=== PATIENT | male | born 1985 | race Caucasian/White ===

== ENCOUNTER → 2021-08-14 09:55 | Outpatient (BNVA) | payer MEDICARE, SELFPAY | PROVIDERS: Visit Provider Emergency Medicine | DX: M25.512 Pain in left shoulder (principal) | CPT/HCPCS: 73030 ==

== ENCOUNTER 2021-11-05 06:00 | Outpatient (RCR) | payer MEDICARE, SELFPAY | END 2021-12-05 23:59 | disposition home or self-care (01) | LOC: MPT 06:00 | PROVIDERS: PCP Family Medicine; Referring Provider Family Medicine; Visit Provider Family Medicine | DX: M54.2 Cervicalgia (principal); G89.29 Other chronic pain | CPT/HCPCS: 97110; 97162 ==

== ENCOUNTER → 2021-11-13 10:09 | Outpatient (BNVA) | payer MEDICARE, SELFPAY | PROVIDERS: PCP Family Medicine; Visit Provider Family Medicine | DX: I10 Essential (primary) hypertension (principal); G89.29 Other chronic pain; M54.2 Cervicalgia; Z13.220 Encounter for screening for lipoid disorders; Z13.6 Encounter for screening for cardiovascular disorders; E11.9 Type 2 diabetes mellitus without complications | CPT/HCPCS: 72040; 80053; 80061; 83036 ==

== ENCOUNTER 2021-12-06 06:00 | Outpatient (RCR) | payer MEDICARE, SELFPAY | END 2022-01-01 17:39 | disposition home or self-care (01) | LOC: MPT 06:00 | PROVIDERS: PCP Family Medicine; Referring Provider Family Medicine; Visit Provider Family Medicine | DX: G89.29 Other chronic pain (principal); M54.2 Cervicalgia | CPT/HCPCS: 97110; G0283 ==

== ENCOUNTER → 2022-08-07 13:33 | Outpatient (BNVA) | payer MEDICARE, OTHER, SELFPAY | PROVIDERS: PCP Family Medicine; Visit Provider Emergency Medicine | DX: R68.89 Other general symptoms and signs (principal); I10 Essential (primary) hypertension; M54.9 Dorsalgia, unspecified; G89.29 Other chronic pain; K21.9 Gastro-esophageal reflux disease without esophagitis; J98.8 Other specified respiratory disorders; B97.89 Other viral agents as the cause of diseases classified elsewhere; Z76.0 Encounter for issue of repeat prescription | CPT/HCPCS: 87400 ==

== ENCOUNTER → 2022-10-09 09:33 | Outpatient (BNVA) | payer MEDICARE, OTHER, SELFPAY | PROVIDERS: PCP Family Medicine; Visit Provider Family Medicine | DX: E78.5 Hyperlipidemia, unspecified (principal); E11.9 Type 2 diabetes mellitus without complications; I10 Essential (primary) hypertension; E34.9 Endocrine disorder, unspecified; K21.9 Gastro-esophageal reflux disease without esophagitis; R79.89 Other specified abnormal findings of blood chemistry; I16.0 Hypertensive urgency; Z91.199 Patient's noncompliance with other medical treatment and regimen due to unspecified reason | CPT/HCPCS: 80053; 80061; 83036; 83880; 84402; 84403 ==

== ENCOUNTER → 2022-10-30 09:33 | Outpatient (BNVA) | payer MEDICARE, OTHER, SELFPAY | PROVIDERS: PCP Family Medicine; Visit Provider Family Medicine | DX: E34.9 Endocrine disorder, unspecified (principal); R79.89 Other specified abnormal findings of blood chemistry | CPT/HCPCS: 84402; 84403 ==

== ENCOUNTER → 2022-11-25 08:54 | Outpatient (BNVA) | payer MEDICARE, OTHER, SELFPAY | PROVIDERS: PCP Family Medicine; Visit Provider Family Medicine | DX: E34.9 Endocrine disorder, unspecified (principal) | CPT/HCPCS: 84402; 84403 ==

== ENCOUNTER 2023-01-20 22:45 | Inpatient (IN) | payer MEDICARE, OTHER, SELFPAY ==
[2023-01-20 22:52] VITALS: BP 165/106; PULSE 75; RESP 18; TEMP 37.1; O2SAT 96
--- NOTE | 2023-01-20 23:22 | ECG_ITS ---
[facility] Test Date: 2023-01-20 Pat Name: Anselmo Velasco Department: Room: Gender: Male Partner Marketing Manager: : 1985 Requested By: Saul Carrillo Order Number: [id number] Ericka MD: Kareem Paige M.D. Measurements Intervals [place] Rate: 75 P: 14 UT: 176 QRS: -1 QRSD: 106 T: 8 QT: 395 QTc: 444 Interpretive Statements SINUS RHYTHM MODERATE VOLTAGE CRITERIA FOR LVH, CONSIDER NORMAL VARIANT [MEETS CRITERIA IN ONE OF: R(aVL), S(V1), R(V5), R(V5/V6)+S(V1)] POSSIBLE ANTERIOR MYOCARDIAL INFARCTION , PROBABLY OLD [30 ms Q WAVE IN V3/V4, OR R < 0.2 mV IN V4] No previous ECG available for comparison Electronically Signed On 01-21-2023 17:49:35 CDT by Kareem Paige M.D. [email or web address] general [email or web address]/store/OM/[id number]
--- NOTE | 2023-01-20 23:22 | XRR_ITS ---
PROCEDURE INFORMATION: Exam: XR Chest Exam date and time: 01/20/2023 11:39 PM Age: 37 years old Clinical indication: Chest pressure; Patient HX: C/O chest pain TECHNIQUE: Imaging protocol: Radiologic exam of the chest. Views: 1 view. COMPARISON: CR XR cervical spine 3V* [id number] 11/13/2021 10:26 AM FINDINGS: Lungs: There is mildly increased lung markings, likely secondary to low lung volumes. Minimal bibasilar atelectasis seen. No consolidation. Pleural spaces: Unremarkable. No pleural effusion. No pneumothorax. Heart/Mediastinum: Unremarkable. No cardiomegaly. Bones/joints: Unremarkable. XR/XR chest 1V portable [id number] IMPRESSION: No clear evidence of active cardiopulmonary disease.
--- NOTE | 2023-01-20 23:25 | ED.C_ITS ---
HPI - Psych General: Chief Complaint: Psychiatric Symptoms Stated Complaint: Si Time Seen by Provider: 01/20/23 23:02 History of Present Illness: 37-year-old male patient comes in today with complaints of anxiety and suicidal thoughts. Patient reports that he has suicidal thoughts every day but today they were worse and I am in a dark place. Patient has a history of PTSD from serving in the with discharge in 2013. Patient's medical condition also includes TBI, hypertension, hypercholesteremia, GERD, gout, diabetes mellitus controlled with diet last A1c 5.7, cardiomegaly, and hearing loss. Patient has a history of alcoholism and current marijuana use. Prior surgeries include right shoulder repair, rotator cuff repair on the right, bunion removal, wisdom teeth. [facility]. Patient admits to use of alcohol due to can help with depression but seem to have made it worse. Patient appears nontoxic. Patient is very animated in his speech. Patient also reported some chest discomfort with this episode today. Associated symptoms: Reports suicidal ideation Review of Systems General: Reports: 10 or more systems reviewed and unremarkable except in HPI and below Const: Denies: fever(s) or chills Eyes: Denies: change in vision ENMT: Denies: throat pain Card: Reports: chest pain Resp: Denies: dyspnea GI: Denies: nausea, vomiting, diarrhea or constipation : Denies: flank pain Musc: Denies: neck pain or back pain Skin/Breast: Denies: rash Neuro: Denies: headache(s) Psych: Reports: anxiety and suicidal ideation [facility] ED PFSH: Medical History History of lipoma Hx of acute renal failure 2018 Surgical History History of arthroscopy of right shoulder had to go back into to remove adhesions and bone spurs History of bunionectomy of both great toes History of dental surgery History of vasectomy Family History Father Clotting disorder Diabetes Hyperlipidemia Hypertension Grandmother Diabetes paternal Hypertension Grandfather Diabetes Hypertension Mother Hypertension Denies family history of Bleeding disorder Stroke Social History Smoking and tobacco status: former smoker Physical Exam Const: COMMON NORMALS: alert GENERAL APPEARANCE: well kempt HENMT: COMMON NORMALS: normocephalic HEAD & SCALP: normocephalic Neck/C-Spine: COMMON NORMALS: full ROM Resp: COMMON NORMALS: normal respiratory effort and clear to auscultation bilaterally AUSCULTATION: clear to auscultation bilaterally Cardio: COMMON NORMALS: regular rate and regular rhythm RATE: regular rate RHYTHM: regular rhythm GI: COMMON NORMALS: non-tender Extremity: COMMON NORMALS: normal to inspection Neuro: SENSORIUM/ORIENTATION: Yes alert Psych: APPEARANCE: Yes well kempt ATTITUDE: Yes bizarre ACTIVITY/MOTOR BEHAVIOR: Yes appropriate eye contact and Yes hyperactivity SPEECH: Yes excessive MOOD & AFFECT: Yes anxious THOUGHT PROCESS: Circumstantial thought process present THOUGHT CONTENT: Yes Suicidality present MEMORY/COGNITION: Yes memory grossly intact INSIGHT: Fair insight present (Psych) JUDGEMENT: Fair judgement present (Psych) Course ED course: 257, consulted Dr. Scott who agreed to admission to neuropsychiatric unit for SI. Vital Signs: Vital signs: Vital Signs Temperature 98 F 01/21/23 14:00 Pulse Rate 82 01/21/23 14:00 Respiratory Rate 18 01/21/23 14:00 Blood Pressure 133/95 01/21/23 14:00 Pulse Oximetry 95 01/21/23 14:00 Oxygen Delivery Me thod Room Air 01/21/23 05:48 [facility] - Psych Medical Decision Making 37-year-old male patient was brought in by EMS for concerns of chest pain, panic attack, and suicidal ideation. Patient reports that he has been anxious for the last 3 days. Patient reports having chest discomfort today and calling EMS to bring him to the emergency room. In route to the ER patient confided with EMS that he felt suicidal and did not want to go along with life. Patient has a history of PTSD after discharge from the in 2013. Patient reports being in a dark place today and having more intrusive suicidal thoughts. Patient did not feel safe at home and wants admission to the stress unit. Patient is cooperative during exam. Respirations are even lungs are clear to auscultation. Vital signs are normal except for some elevation in blood pressure. Differential diagnosis includes but not limited to suicidal ideation, anxiety attack, major depressive disorder. EKG showed a sinus rhythm with a regular rate at 75 bpm. CBC did have some mild leukocytosis 18,000, CMP was unremarkable, salicylate, acetaminophen, ethyl alcohol were negative. First and 2-hour troponins were normal. Patient was cleared of any medical problems. Patient was discussed with Dr. Luna who recommended admission to neuropsychiatr ic unit. Dr. Scott was consulted for admission and agreed to plan. Lab Data 01/20/23 23:35 01/20/23 23:35 Radiology Impressions Chest X-Ray 01/20/23 23:22 IMPRESSION: No clear evidence of active cardiopulmonary disease. Laboratory Results WBC 18.3 10^3/uL (4.0-10.0) H 01/20/23 23:35 RBC 5.71 10^6/uL (4.1-5.3) H 01/20/23 23:35 Hgb 15.6 g/dL (11.7-16.6) 01/20/23 23:35 Hct 47.3 % (42.0-52.0) 01/20/23 23:35 MCV 82.8 fl (80-94) 01/20/23 23: MCH 27.3 pg (28.0-34.0) L 01/20/23 23:35 MCHC 33.0 g/dL (30.0-36.0) 01/20/23 23:35 RDW 11.9 % (12.1-15.1) L 01/20/23 23:35 Plt Count 312 10^3/cmm (130-400) 01/20/23 23:35 MPV 9.2 fL (7.4-10.4) 01/20/23 23:35 Neut % (Auto) 83.4 % 01/20/23 23:35 Lymph % (Auto) 9.0 % 01/20/23 23:35 [place] % (Auto) 5.5 % 01/20/23 23:35 Eos % (Auto) 1.4 % 01/20/23 23:35 Baso % (Auto) 0.3 % 01/20/23 23:35 Neut # (Auto) 15.28 10^3/uL (1.8-7.7) H 01/20/23 23:35 Lymph # (Auto) 1.7 10^3/uL (0.8-4.8) 01/20/23 23:35 [place] # (Auto) 1.0 10^3/uL (0.2-0.9) H 01/20/23 23:35 Eos # (Auto) 0.3 10^3/uL (0.0-0.8) 01/20/23 23:35 Baso # (Auto) 0.1 10^3/uL (0.0-0.1) 01/20/23 23:35 Nucleated RBC % (auto) 0 % 01/20/23 23:35 Nucleated RBCs # 0.0 /100WBC 01/20/23 23:35 Sodium 138 mmol/L (136-145) 01/20/23 23:35 Potassium 3.5 mmol/L (3.5-5.1) 01/20/23 23:35 Chloride 100 mmol/L (98-107) 01/20/23 23:35 Carbon Dioxide 22 mmol/L (22-29) 01/20/23 23:35 Anion Gap 19.5 (5-19) H 01/20/23 23:35 BUN 11 mg/dL (6-20) 01/20/23 23:35 Creatinine 0.9 mg/dL (0.7-1.2) 01/20/23 23:35 GFR Calculation 93.9 mL/min (90-130) 01/20/23 23:35 Glucose 95 mg/dL (65-115) 01/20/23 23:35 Calculated Osmolality 285 mOsm/kg (285-295) 01/20/23 23:35 Calcium 9.7 mg/dL (8.5-10.5) 01/20/23 23:35 Total Bilirubin 0.7 mg/dL (0.15-1.2) 01/20/23 23:35 AST 33 U/L (0-40) 01/20/23 23:35 ALT 48 U/L (0-41) H 01/20/23 23:35 Alkaline Phosphatase 121 U/L (40-130) 01/20/23 23:35 Troponin T Baseline 9 ng/L (0-15) 01/20/23 23:35 Troponin T 120 Minute 12.04 ng/L (0-15) 01/21/23 02:16 Delta Troponin T 3.04 ABS# (0-10) 01/21/23 02:16 Total Protein 6.7 g/dL (6.6-8.7) 01/20/23 23:35 Albumin 4.8 g/dL (3.5-5.2) 01/20/23 23:35 Globulin 1.9 g/dL (1.3-4.6) 01/20/23 23:35 Salicylates < 0.3 mg/dL (3-10) L 01/20/23 23:35 Acetaminophen < 5.0 ug/mL (10-30) L 01/20/23 23:35 Ethyl Alcohol < 10 mg/dL (0-10) 01/20/23 23:35 Discharge Plan Discharge Patient Disposition: Admitted As Inpatient Admit Provider: James Scott Clinical Impression: Suicidal ideation, Post traumatic stress disorder (PTSD), Anxiety disorder Condition: Stable Coding Level of Care Code ED County Engineer for Keke Kaur
[2023-01-20] MEDS: pantoprazole 40 mg SDV IVP (23:32)
[2023-01-20] MEDS: LORazepam 2 mg/mL INJ 1 mL IVP (23:32)
[2023-01-20 23:52] LABS: Basophils # 0.1 10^3/uL (0.0-0.1); Basophils % 0.3 %; Eosinophils # 0.3 10^3/uL (0.0-0.8); Eosinophils % 1.4 %; Hematocrit 47.3 % (42.0-52.0); Hemoglobin 15.6 g/dL (11.7-16.6); Lymphocytes # 1.7 10^3/uL (0.8-4.8); Mean Corpuscular Hemoglobin 27.3 pg (28.0-34.0); Mean Corpuscular Volume 82.8 fl (80-94); Mean Platelet Volume 9.2 fL (7.4-10.4); Monocytes % 5.5 %; Neutrophils # 15.28 10^3/uL (1.8-7.7); Neutrophils % 83.4 %; Nucleated Red Blood Cells % 0 %; Platelet Count 312 10^3/cmm (130-400); Red Blood Count 5.71 10^6/uL (4.1-5.3); Red Cell Distribution Width 11.9 % (12.1-15.1); White Blood Count 18.3 10^3/uL (4.0-10.0)
[2023-01-21] LABS: Troponin(5th) Baseline 9 ng/L (0-15)
[2023-01-21 00:07] LABS: Acetaminophen < 5.0 ug/mL (10-30); Alanine Aminotransferase 48 U/L (0-41); Albumin Level 4.8 g/dL (3.5-5.2); Alcohol Level < 10 mg/dL (0-10); Alkaline Phosphatase 121 U/L (40-130); Anion Gap 19.5 (5-19); Aspartate Amino Transferase 33 U/L (0-40); Blood Urea Nitrogen 11 mg/dL (6-20); Calcium 9.7 mg/dL (8.5-10.5); Carbon Dioxide 22 mmol/L (22-29); Chloride 100 mmol/L (98-107); Globulin 1.9 g/dL (1.3-4.6); Glomerular Filtration Rate 93.9 mL/min (90-130); Glucose 95 mg/dL (65-115); Osmolality Calculated 285 mOsm/kg (285-295); Potassium 3.5 mmol/L (3.5-5.1); Salicylate < 0.3 mg/dL (3-10); Sodium 138 mmol/L (136-145); Total Bilirubin 0.7 mg/dL (0.15-1.2); Total Protein 6.7 g/dL (6.6-8.7)
--- NOTE | 2023-01-21 01:22 | ECG_ITS ---
[facility] Test Date: 2023-01-21 Pat Name: Anselmo Velasco Department: Room: 151 Gender: Male Internet Database Specialist: : 1985 Requested By: Saul Carrillo Order Number: [id number] Ericka MD: Kareem Paige M.D. Measurements Intervals [place] Rate: 63 P: 37 TX: 173 QRS: 30 QRSD: 107 T: 36 QT: 405 QTc: 416 Interpretive Statements SINUS RHYTHM Compared to ECG 01/20/2023 23:57:53 Myocardial infarct finding no longer present Electronically Signed On 01-21-2023 18:00:01 CDT by Kareem Paige M.D. [email or web address] Solarallegiance specialty hospital of greenvilleEmpathicamercy health fairfield hospitalOilex/store/OM/[id number]
[2023-01-21 02:40] LABS: Troponin 5 2HR 12.04 ng/L (0-15)
[2023-01-21 03:00] LABS: Troponin 5 2HR Delta 3.04 ABS# (0-10)
[2023-01-21 04:02] VITALS: BP 135/84; PULSE 72; RESP 16; O2SAT 97
--- NOTE | 2023-01-21 05:22 | ECG_ITS ---
[facility] Test Date: 2023-01-21 Pat Name: Anselmo Velasco Department: Room: 150 Gender: Male Manager Drive: : 1985 Requested By: Saul Carrillo Order Number: [id number] Ericka MD: Kareem Paige M.D. Measurements Intervals [place] Rate: 66 P: 27 MT: 174 QRS: 31 QRSD: 108 T: 23 QT: 400 QTc: 422 Interpretive Statements SINUS RHYTHM Compared to ECG 01/21/2023 03:51:44 No significant changes Electronically Signed On 01-21-2023 17:59:34 CDT by Kareem Paige M.D. [email or web address] rehabilitation centerMicroSolarpremier health miami valley hospital northPodio/store/OM/[id number]
[2023-01-21 05:48] VITALS: BP 146/93; PULSE 72; RESP 16; TEMP 36.6; O2SAT 97
[2023-01-21 14:00] VITALS: BP 133/95; PULSE 82; RESP 18; TEMP 36.6; O2SAT 95
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
[2023-01-21] MEDS: quetiapine 25 mg Tablet 50 MG PO (21:02)
[2023-01-21 22:00] VITALS: BP 154/89; PULSE 96; RESP 18; TEMP 37; O2SAT 93
[2023-01-22 05:56] VITALS: RESP 15
[2023-01-22] MEDS: atorvastatin 40 mg Tablet 20 MG PO (11:59)
[2023-01-22] MEDS: lisinopril 20 mg Tablet 40 MG PO (11:59)
[2023-01-22] MEDS: pantoprazole DR 40 mg Tablet PO (11:59)
[2023-01-22 12:20] LABS: Amphetamines Screen Urine Negative (Negative); Barbiturates Screen Urine Negative (Negative); Benzodiazepines Screen Urine Positive (Negative); Cocaine Screen Urine Negative (Negative); Opiate Screen Urine Negative (Negative); PCP Screen Urine Negative (Negative); THC Screen Urine Positive (Negative)
[2023-01-22 14:00] VITALS: BP 129/89; PULSE 78; RESP 20; TEMP 37.1; O2SAT 96
--- NOTE | 2023-01-22 15:36 | P.NPUPN_ITS ---
Subjective NPU Subjective: Patient presented today quite upset about the fact that he was not allowed to leave the moment that he decided he wanted to leave because I am involuntary. We discussed the fact that his comments yesterday about feeling suicidal have impacts today and that this proposal lead writer does not know him and would like to make sure that he is going to be safe and there is a clear plan for discharge. After a fairly agitated interaction we spoke again later and he was able to be more calm. No less frustrated about having to stay but able to manage himself. He reports [facility] and he will be following up there. We agreed that we would make sure the social work team was able to identify those appointments and that we get collateral information from his about guns and issues of safety and that we would consider discharge tomorrow if he was still wanting to leave. He was clear that he does not want to try medications reporting that medical marijuana has been a godsend but being unable to explain why that was not the case 2 days ago. Mental Status Exam MSE Comments: This is an obese white male in hospital scrubs with appropriate grooming and eye contact.? No abnormal movements except for mild psychomotor agitation.? Cooperative with exam in mild distress.? Speech was increased rate and volume.? Mood described as frustrated about being here, affect congruent.? Thought process organized.? Thought content: Patient denied suicidal or homicidal ideation, there were no delusions reported or noted, he denied any auditory or visual hallucinations.? Attention and concentration were intact and memory appeared reliable but none were formally tested.? He is alert and oriented x3.? Insight and judgment appear fair and impulse control appears limited. Vitals/I&O/Wt Last Vital Signs Temp 98.6 F 01/21/23 22:00 Pulse 96 01/21/23 22:00 Resp 15 01/22/23 05:56 BP 154/89 01/21/23 22:00 Pulse Ox 93 01/21/23 22:00 O2 Del Method Room Air 01/21/23 22:00 Weight last 48 hrs Weight 136.35 kg Data NPU 01/20/23 23:35 01/20/23 23:35 A&P Assessment and plan (1) Major depressive disorder: (2) Post traumatic stress disorder (PTSD): (3) Suicidal ideation: (4) Traumatic brain injury: (5) Sleep apnea: Qualifiers: Sleep apnea type: obstructive Qualified Code(s): G47.33 - Obstructive sleep apnea (adult) (pediatric) Plan The patient is a 37-year-old white male with a history of PTSD and depression admitted with recent reemergence of depressed mood with suicidal thoughts with unknown triggers reported. Patient would likely benefit from inpatient hospitalization for acute stabilization. 1.? ?Encourage individual ,milieu, and group therapy ?2. ? We will attempt to gather collateral information from previous providers ?3. ? TO-15 minute checks on the unit. ?4.? Recommend sober living treatment at the highest level of care to which the patient is willing to commit. 5. Patient voluntary and not interested in medications. May consider discharge tomorrow. Involuntary Hold Information 2 96 Hour Hold: 96 Hour Involuntary Admission: No Attestations NPU Medical Necessity Statement*: Inpatient hospitalization is medically necessary and the clinically appropriate intervention at this time. We will monitor medications and make changes as indicated. Likely length of stay is 1-3 days. Coding Level of Care Code Acute Code for [facility] Fwd Diagnoses Major depressive disorder F32.9 Post traumatic stress disorder (PTSD) F43.10 Suicidal ideation R45.851 Traumatic brain injury S06.9X9A Sleep apnea G47.33 Sleep apnea type: obstructive
[2023-01-22 22:00] VITALS: RESP 16
[2023-01-23 06:00] VITALS: RESP 14
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
[2023-01-23 08:05] VITALS: RESP 14
[2023-01-23] MEDS: lisinopril 20 mg Tablet 40 MG PO (08:35)
[2023-01-23] MEDS: atorvastatin 40 mg Tablet 20 MG PO (08:35)
[2023-01-23] MEDS: pantoprazole DR 40 mg Tablet PO (08:35)
--- NOTE | 2023-01-23 08:48 | DCPLANNER ---
IMM was printed and given to pt and rights explained. Copy placed in pts file.
== END 2023-01-23 10:30 | disposition home or self-care (01) | DRG 881 ==
LOC: ER 01-21 03:00 → NP 01-21 03:31
PROVIDERS: Emergency Medicine; Admitting Provider Psychiatry & Neurology Psychiatry; Emergency Provider Nurse Practitioner Family; PCP Family Medicine; Visit Provider Psychiatry & Neurology Psychiatry
DX: F32.9 Major depressive disorder, single episode, unspecified (principal); R45.851 Suicidal ideations; Z81.3 Family history of other psychoactive substance abuse and dependence; Z87.820 Personal history of traumatic brain injury; Z88.0 Allergy status to penicillin; E78.00 Pure hypercholesterolemia, unspecified; K21.9 Gastro-esophageal reflux disease without esophagitis; M10.9 Gout, unspecified; E11.9 Type 2 diabetes mellitus without complications; H91.90 Unspecified hearing loss, unspecified ear; F10.20 Alcohol dependence, uncomplicated; F12.90 Cannabis use, unspecified, uncomplicated; Z87.891 Personal history of nicotine dependence; F43.10 Post-traumatic stress disorder, unspecified; F41.9 Anxiety disorder, unspecified; G47.33 Obstructive sleep apnea (adult) (pediatric)
CPT/HCPCS: 71045; 80053; 80306; 80307; 84484; 85025; 93005; 96374; 96375; 97165; 99238; 99285; C9113; J2060

== ENCOUNTER → 2023-04-15 13:09 | Outpatient (BNVA) | payer MEDICARE, OTHER, SELFPAY | PROVIDERS: PCP Family Medicine; Visit Provider Emergency Medicine | DX: M25.532 Pain in left wrist (principal) | CPT/HCPCS: 73110 ==

== ENCOUNTER → 2023-07-01 15:08 | Outpatient (BNVA) | payer MEDICARE, OTHER, SELFPAY | PROVIDERS: PCP Family Medicine; Visit Provider Emergency Medicine | DX: M79.641 Pain in right hand (principal) | CPT/HCPCS: 73130 ==

== ENCOUNTER → 2023-11-10 10:50 | Outpatient (BNVA) | payer MEDICARE, OTHER, SELFPAY | PROVIDERS: PCP Family Medicine; Visit Provider Family Medicine | DX: I10 Essential (primary) hypertension (principal); E78.2 Mixed hyperlipidemia; E11.9 Type 2 diabetes mellitus without complications; E34.9 Endocrine disorder, unspecified | CPT/HCPCS: 80053; 80061; 83036; 84402; 84403 ==

== ENCOUNTER → 2025-03-06 10:56 | Outpatient (BNVA) | payer MEDICARE, OTHER, SELFPAY | PROVIDERS: PCP Family Medicine; Visit Provider Family Medicine | DX: E78.2 Mixed hyperlipidemia (principal); I10 Essential (primary) hypertension; E11.9 Type 2 diabetes mellitus without complications; Z51.81 Encounter for therapeutic drug level monitoring | CPT/HCPCS: 80053; 80061; 83036; 85025 ==

== ENCOUNTER → 2025-08-21 11:01 | Outpatient (BNVA) | payer MEDICARE, OTHER, SELFPAY | PROVIDERS: PCP Family Medicine; Visit Provider Family Medicine | DX: E11.9 Type 2 diabetes mellitus without complications (principal); I10 Essential (primary) hypertension; R74.8 Abnormal levels of other serum enzymes | CPT/HCPCS: 80053; 83036; 86705; 86706; 86709; 86803; 87340 ==